=== PATIENT | female | born 1995 | race Caucasian/White ===

== ENCOUNTER 2020-07-03 08:44 | Emergency (ER) | payer OTHER, SELFPAY ==
--- NOTE | ~2020-07-03 | XR_ITS ---
EXAMINATION: XR toe 5th RT min 2V DATE: 07/03/2020 09:07 INDICATION: Right fifth toe pain. TECHNIQUE: 3 views of right fifth toe were obtained. COMPARISON: None. FINDINGS: There is a bunionette deformity of the fifth digit. No fracture. Joint spaces are normal. IMPRESSION: 1. Bunionette. Reviewed, dictated and finalized at location A. IMPRESSION: 1. Bunionette.
[2020-07-03 08:48] VITALS: BP 121/53; PULSE 86; RESP 20; TEMP 36.8; O2SAT 99
--- NOTE | 2020-07-03 09:07 | PC.NURSE ---
PT DECLINED WHEELCHAIR TO RADIOLOGY
--- NOTE | 2020-07-03 09:09 | ED.LOWEXIN ---
HPI - Extremity Injury (Lower) General Chief Complaint: Extremity Injury, Lower Stated Complaint: right pinky toe injury Time Seen by Provider: 07/03/20 09:00 Source: patient Limitations: no limitations History of Present Illness HPI Narrative: Stacey Alvarez is a 25 yo female with no PMH who comes to express care after hitting with of right foot none Vannessa Valdez last night states it hurt immediately and felt a pop. Pain is a 10. Mild swelling, no ecchymosis. has not iced toe Related Data Home Medications Medication Instructions Recorded Confirmed levonorgestrel [Mirena] 1 device INTRAUTERINE ONCE 07/03/20 07/03/20 Allergies Allergy/AdvReac Type Severity Reaction Status Date / Time tramadol Allergy Mild Rash Verified 07/03/20 09:06 Review of Systems Review of Systems: Narrative: CONSTITUTIONAL: Denies fever, chills, sweats. EYES: Denies visual changes, redness, discharge. ENT: Denies rhinorrhea, congestion, sore throat, otalgia. CARDIOVASCULAR: Denies chest pain, palpitations, edema. RESPIRATORY: Denies dyspnea, wheezing, cough GASTROINTESTINAL: Denies abdominal pain, nausea, vomiting, diarrhea. GENITOURINARY: Denies dysuria, hematuria, abnormal discharge SKIN: Denies rash or itching. NEUROLOGIC: Denies numbness, or focal weakness. PSYCHIATRIC: Denies anxiety or depression. Right toe pain- hit foot on barbell last night PMFSH Past Medical History Medical History No acute medical problems Family History Family History Father Diabetes mellitus Social History Social History (Updated 07/03/20 @ 09:11 by Marisela Ventura CNP) Smoking status: Never smoker Alcohol intake: current Comments At time of signature, I agree with nursing past medical, surgical, social and family history. There is no relevant family history pertinent to the presenting complaint. Exam Narrative: Exam Narrative: GENERAL: This is a well-nourished, well-developed patient, in mild distress. HEAD: normocephalic, atraumatic. EYES: Sclera clear/white. Vision is grossly intact. EARS: External ears normal, Hearing grossly intact. NOSE: External nose normal without nasal discharge, nares without redness, no rhinorrhea. THROAT: Mucous membranes moist, NECK: Neck supple, CARDIOVASCULAR: Regular rate and rhythm without murmurs, gallops, or rubs. RESPIRATORY: Clear to auscultation. Breath sounds equal bilaterally. No wheezes, rales, or rhonchi. GASTROINTESTINAL: Abdomen soft, non-tender, SKIN: warm, intact with no suspicious lesions or rash, good texture and turgor. NEURO: awake, alert, and oriented to person, place and time. There were no obvious focal neurologic abnormalities. Steady gait EXTREMITIES: Normal range of motion. Right toe appears slightly rotated but no ecchymosis tender to touch,2+ pedal pulses BACK: Nontender without deformity Course Course Emergency Course: Patient here for injury to right fourth toe x-ray of right foot-results show a bunionette deformity at the fifth digit with no fracture Toe was matthieu taped so patient was able to walk more easily; given instructions on care; ibuprofen for pain Vital Signs Vital signs: Vital Signs Temperature 98.3 F 07/03/20 08:48 Pulse Rate 86 07/03/20 08:48 Respiratory Rate 20 07/03/20 08:48 Blood Pressure 121/53 L 07/03/20 08:48 Pulse Oximetry 99 07/03/20 08:48 Temperature 98.3 F 07/03/20 08:48 Pulse Rate 86 07/03/20 08:48 Respiratory Rate 20 07/03/20 08:48 Blood Pressure 121/53 L 07/03/20 08:48 Pulse Oximetry 99 07/03/20 08:48 MDM - Extremity Injury (Lower) Differential Diagnosis Differential diagnosis: Likely puncture wound of foot, fracture of toe and other Discharge Plan Discharge Clinical Impression: Bunionette of right foot Sprain of toe, fifth, right Qualifiers: Encounter type: initial encounter Qualified
== END 2020-07-03 09:20 | disposition home or self-care (01) ==
PROVIDERS: Emergency Provider Nurse Practitioner
DX: S93.504A Unspecified sprain of right lesser toe(s), initial encounter (principal); W22.8XXA Striking against or struck by other objects, initial encounter; M21.621 Bunionette of right foot
CPT/HCPCS: 73660; 99213; G0463

== ENCOUNTER 2021-04-30 17:29 | Emergency (ER) | payer OTHER, SELFPAY ==
[2021-04-30 17:40] VITALS: BP 131/68; PULSE 75; RESP 16; TEMP 37.6; O2SAT 100
--- NOTE | 2021-04-30 17:43 | ED.SKABFB ---
HPI - Skin/Abscess/Foreign Bdy General Chief complaint: Skin/Abscess/Foreign Body Stated complaint: rash all over Time Seen by Provider: 04/30/21 17:47 Source: patient History of Present Illness HPI narrative: Patient presents with an itchy rash to her arms back left cheek and both lower extremities. Patient states she was outside working in the [employer] and thinks she got into contact with poison oak or poison josh. Patient took 1 Benadryl with minimal relief in itching. No shortness of breath and no chest pain. Patient states she is normally healthy individual. MD complaint: rash Related Data Home Medications Medication Instructions Recorded Confirmed levonorgestrel [Mirena] 1 device INTRAUTERINE ONCE 07/03/20 07/03/20 Allergies Allergy/AdvReac Type Severity Reaction Status Date / Time tramadol Allergy Mild Rash Verified 07/03/20 09:06 Review of Systems Review of Systems: CONSTITUTIONAL: Denies fever, chills, or sweats. EYES: Denies visual changes, redness, or discharge. ENT: Denies rhinorrhea, congestion, sore throat, or otalgia. CARDIOVASCULAR: Denies chest pain, palpitations, or edema. RESPIRATORY: Denies cough or dyspnea. GASTROINTESTINAL: Denies abdominal pain, nausea, vomiting, or diarrhea. GENITOURINARY: Denies dysuria or hematuria. SKIN: Itchy rash to both arms and legs MUSCULOSKELETAL: Denies back pain, joint pain, or myalgia. NEUROLOGIC: Denies headache, numbness, or weakness. PSYCHIATRIC: Denies anxiety or depression. PMFSH Past Medical History Medical History No acute medical problems Family History Family History Father Diabetes mellitus Social History Social History (Updated 07/03/20 @ 09:11 by Marisela Ventura CNP) Smoking status: Never smoker Alcohol intake: current Gender identity (if verbalized by the patient): Female Comments At time of signature, agree with nursing past medical, surgical, social and family history. There is no relevant family history pertinent to the presenting complaint Exam Narrative: GENERAL: Well-appearing, well-nourished, and in no acute distress. HEAD: Normocephalic, atraumatic. EYES: PERRLA and EOMI. ENT: Nares clear, no rhinorrhea or epistaxis. Mucous membranes moist. NECK: Supple. CHEST: Clear to auscultation. No respiratory distress. HEART: Regular rate and rhythm. No murmur heard. Normal peripheral pulses. ABDOMEN: Soft, nontender, nondistended, normal active bowel sounds. EXTREMITIES: Normal range of motion. No edema. SKIN: Warm, dry, NON SPECIFIC GENERALIZED RASH. NO FLUID FILLED LESIONS, NO VESICLES, NO HIVES OR URTICARIA, NO BURROWS OR RASH IN WEB SPACES TO INDICATE SCABIES, NO CONCERN FOR CELLULITIS OR ABSCESS FORMATION. NO PURPURA OR PETECHIA. DOES NOT INVOLVE THE SOLES OF FEET OR PALMS OF HANDS OR THE MUCOSAL MEMBRANES. NO SLOUGHING OR SWELLING OF TONGUE OR LIPS. To both arms both lower extremities NEURO: No focal deficits. Alert and oriented x3. Misti Coma Scale Eye Opening: Spontaneous 4 Misti Coma Scale Motor: Obeys Commands 6 [place] Coma Scale Verbal: Oriented 5 Misti Coma Scale Total 15 Course Vital Signs Vital signs: Vital Signs Temperature 37.6 C 04/30/21 17:40 Pulse Rate 75 04/30/21 17:40 Respiratory Rate 16 04/30/21 17:40 Blood Pressure 131/68 04/30/21 17:40 Pulse Oximetry 100 04/30/21 17:40 Temperature 37.6 C 04/30/21 17:40 Pulse Rate 75 04/30/21 17:40 Respiratory Rate 16 04/30/21 17:40 Blood Pressure 131/68 04/30/21 17:40 Pulse Oximetry 100 04/30/21 17:40 Addressed elevated BP today. Today's blood pressure higher than recommended range. Discussed importance of follow -up with PCP and possible terminal superintendent effects/cardiovascular events related to HTN. Currently patient denies headache, dizziness, vision changes, CP or shortness of breath. Critical dx considered and discussed
== END 2021-04-30 17:52 | disposition home or self-care (01) ==
PROVIDERS: Emergency Provider Nurse Practitioner Family
DX: L23.7 Allergic contact dermatitis due to plants, except food (principal)
CPT/HCPCS: 99213; G0463

== ENCOUNTER 2021-10-11 19:30 | Emergency (ER) | payer OTHER, SELFPAY ==
--- NOTE | ~2021-10-11 | XR_ITS ---
XR hand RT min 3V DATE: 10/11/2021 19:50 INDICATION: Accidentally hit wall on 10/09/21. Pain at third and fourth digits TECHNIQUE: 3 views COMPARISON: None FINDINGS: No fracture or dislocation, periosteal reaction or bone destruction, joint space narrowing, erosive change, chondrocalcinosis. IMPRESSION: Negative Reviewed, dictated and finalized at location A. [facility] [employer] [facility] [employer] IMPRESSION: Negative
[2021-10-11 19:36] VITALS: BP 118/78; PULSE 94; RESP 20; TEMP 37.1; O2SAT 100
--- NOTE | 2021-10-11 19:44 | ED.UPPEXIN ---
HPI - Extremity Injury (Upper) General Chief Complaint: Extremity Injury, Upper Stated Complaint: Right Hand Injury Time Seen by Provider: 10/11/21 19:46 Source: patient and RN notes reviewed Mode of arrival: ambulatory Limitations: no limitations History of Present Illness HPI narrative: 26-year-old female presents with concern for right hand pain. Reports she woke up on Monday morning after sleeping on a friend's bed and thinks she may have hit her hand on a concrete wall. She reports pain increased throughout the day of Monday and today. She denies intervention. She reports pain shoots up her arm when she flexes her fingers. She reports mild tenderness and swelling. MD complaint: injury to: right and hand Related Data Home Medications Medication Instructions Recorded Confirmed ethynodiol diac-eth estradiol tablet PO DAILY 10/11/21 topiramate 25 mg PO DAILY 10/11/21 10/11/21 Allergies Allergy/AdvReac Type Severity Reaction Status Date / Time tramadol Allergy Mild Rash Verified 10/11/21 19:45 Review of Systems Review of Systems: CONSTITUTIONAL: Denies malaise, chills, sweats, or fever. CARDIOVASCULAR: Denies chest pain, palpitations, or edema. RESPIRATORY: Denies cough or dyspnea. SKIN: Denies rash or itching, bruising, redness, swelling. MUSCULOSKELETAL: Reports right hand pain NEUROLOGIC: Denies numbness, weakness All systems reviewed & are unremarkable except as noted in HPI and below PMFSH Past Medical History Medical History No acute medical problems Family History Family History Father Diabetes mellitus Social History Social History (Updated 07/03/20 @ 09:11 by Marisela Ventura CNP) Smoking status: Never smoker Alcohol intake: current Gender identity (if verbalized by the patient): Female Comments At time of signature, agree with nursing past medical, surgical, social and family history. There is no relevant family history pertinent to the presenting complaint Exam Narrative: GENERAL: Well-appearing, well-nourished, and in no acute distress. HEAD: Normocephalic EYES: PERRLA, conjunctivae clear NECK: Supple. CHEST: Speaks in full sentences. No respiratory distress. HEART: Regular rate and rhythm. Normal and equal peripheral pulses. EXTREMITIES: Right hand and digits of hand have normal strength and sensation. 5/5 strength with digit flexion, extension. Range of motion normal. No clubbing, cyanosis, or edema noted. Mild tenderness at the base of digits 2 and 3. Skin intact. Normal digital cascade with flexion of fingers, median, ulnar and radial nerve intact. Normal sensation of each side of finger. Can perform 'okay' sign, 'cross over finger test of index and middle fingers' and 'thumbs up' sign. No scissoring. Normal thumb opposition. Good capillary refill and radial pulse. Distal capillary refill less than 3 seconds. Patient is right/left hand dominant SKIN: Warn, dry, intact, pink. No rash. No open skin, erythema. NEURO: Alert and oriented x3. PSYCH: Normal mood and affect Course Course Emergency Course: Patient is aware of diagnosis, understands and agrees to treatment plan. Anticipatory guidance given. Patient agrees to follow-up as directed and is aware of reasons to seek care at the emergency department. Portions of this record may have been created with voice recognition software Level of Care: Express Care Visit Vital Signs Vital signs: Vital Signs Temperature 98.8 F 10/11/21 19:36 Pulse Rate 94 10/11/21 19:36 Respiratory Rate 20 10/11/21 19:36 Blood Pressure 118/78 10/11/21 19:36 Pulse Oximetry 100 10/11/21 19:36 Temperature 98.8 F 10/11/21 19:36 Pulse Rate 94 10/11/21 19:36 Respiratory Rate 20 10/11/21 19:36 Blood Pressure 118/78 10/11/21 19:36 Pulse Oximetry 100 10/11/21 19:36 Reviewed. MDM - Extremity Injury (Upper) M
== END 2021-10-11 20:07 | disposition home or self-care (01) ==
PROVIDERS: Emergency Provider Nurse Practitioner
DX: M77.8 Other enthesopathies, not elsewhere classified (principal)
CPT/HCPCS: 73130; 99213; G0463

== ENCOUNTER 2022-07-20 17:34 | Emergency (ER) | payer OTHER, SELFPAY ==
[2022-07-20 17:46] VITALS: BP 127/90; PULSE 79; RESP 20; TEMP 36.8; O2SAT 100
--- NOTE | 2022-07-20 18:14 | ED.SKABFB ---
HPI - Skin/Abscess/Foreign Bdy General Chief complaint: Skin/Abscess/Foreign Body Stated complaint: Rash Time Seen by Provider: 07/20/22 18:14 Source: patient Mode of arrival: ambulatory Limitations: no limitations History of Present Illness HPI narrative: 27 y/o mone presented for c/o left cheek redness, pain and drainage from site. Woke this morning with pimple, applied warm compress and the 'white head' came off and has been draining from the site all day. Hx MRSA. Denies dental or eye pain. Denies fever or other sites of skin changes. Denies change to lotion, soap, or makeup. Denies lip/tongue or throat swelling, sob, or wheezing. Related Data Home Medications Medication Instructions Recorded Confirmed ethynodiol diacetate-ethinyl 1 tablet PO DAILY 10/11/21 07/20/22 estradiol 1 mg-35 mcg tablet topiramate 25 mg tablet 25 mg PO DAILY 10/11/21 07/20/22 Allergies Allergy/AdvReac Type Severity Reaction Status Date / Time tramadol Allergy Mild Rash Verified 07/20/22 17:53 sumatriptan Allergy Anxiety Verified 07/20/22 17:53 Review of Systems Review of Systems: CONSTITUTIONAL: Denies body aches, fever, chills, or sweats. EYES: Denies visual changes, redness, or discharge. CARDIOVASCULAR: Denies chest pain, palpitations, or edema. RESPIRATORY: Denies cough or dyspnea. SKIN: per HPI MUSCULOSKELETAL: Denies back pain, joint pain, or myalgia. NEUROLOGIC: Denies headache, numbness, tingling, or weakness. [facility] Past Medical History Medical History No acute medical problems Family History Family History Father Diabetes mellitus Social History Social History Smoking status: Never smoker Alcohol intake: current Gender identity (if verbalized by the patient): Female Comments At time of signature, I have reviewed and agree with nursing past medical, surgical, social and family history unless otherwise noted. Please see nursing chart for further information. There is no relevant family history pertinent to the presenting complaint Exam Narrative: GENERAL: Well-appearing HEAD: Normocephalic, atraumatic. EYES: conjunctivae clear, and EOMI. ENT: Mucous membranes moist. Oropharynx without edema, erythema or lesions. CHEST: Clear to auscultation. HEART: Regular rate and rhythm. SKIN: Warm, dry. left upper cheek abscess approx 2cm diameter, tender, no induration or fluctuance, no active drainage NEURO: Alert and oriented x3. Course Course Emergency Course: Patient is aware of diagnosis, understands and agrees to treatment plan. Anticipatory guidance given. Patient agrees to follow-up as directed and is aware of reasons to seek care at the emergency department. Portions of this record may have been created with voice recognition software Level of Care: Express Care Visit Vital Signs Vital signs: Vital Signs Temperature 98.2 F 07/20/22 17:46 Pulse Rate 79 07/20/22 17:46 Respiratory Rate 20 07/20/22 17:46 Blood Pressure 127/90 07/20/22 17:46 Pulse Oximetry 100 07/20/22 17:46 Oxygen Delivery Room Air 07/20/22 17:46 Temperature 98.2 F 07/20/22 17:46 Pulse Rate 79 07/20/22 17:46 Respiratory Rate 20 07/20/22 17:46 Blood Pressure 127/90 07/20/22 17:46 Pulse Oximetry 100 07/20/22 17:46 Oxygen Delivery Room Air 07/20/22 17:46 Reviewed MDM - Skin/Abscess/Foreign Bdy MDM Narrative Medical decision making narrative: No indication for I&D, will give abx given hx MRSA and PE. Advised supportive measures and signs/symptoms to go to the ER. Pt is appropriate for outpt treatment and f/u. Instructed patient to go to nearest ER immediately for any worsening symptoms including but not limited to: fever, spreading rash, pain, redness, swelling, drainage or any symptoms concerning to the pat
== END 2022-07-20 18:26 | disposition home or self-care (01) ==
PROVIDERS: Emergency Provider Nurse Practitioner Family; PCP Internal Medicine
DX: L02.01 Cutaneous abscess of face (principal)
CPT/HCPCS: 99213; G0463

== ENCOUNTER 2022-10-31 17:18 | Emergency (ER) | payer OTHER, SELFPAY ==
--- NOTE | ~2022-10-31 | XR_ITS ---
EXAM: XR foot LT min 3V DATE: 10/31/2022 17:45 HISTORY: WOOD DROPPED ONTOP OF LT. FOOT. 10/30/22. ATTN: GREAT TOE. . COMPARISON: None available. FINDINGS: Normal mineralization. No fracture or dislocation. No lytic or blastic lesion. Joint space s are maintained. Moderate plantar enthesopathy No erosion or periosteal change. Soft tissues within normal limits. IMPRESSION: No acute osseous finding in the left foot. Reviewed, dictated and finalized at location K. [facility]
[2022-10-31 17:24] VITALS: BP 117/83; PULSE 56; RESP 20; TEMP 36.9; O2SAT 100
--- NOTE | 2022-10-31 18:04 | ED.LOWEXIN ---
HPI - Extremity Injury (Lower) General Chief Complaint: Extremity Injury, Lower Stated Complaint: Toe Injury Time Seen by Provider: 10/31/22 18:04 Source: patient, RN notes reviewed and old records reviewed Mode of arrival: ambulatory Limitations: no limitations History of Present Illness HPI Narrative: 27-year-old female with complaints footboard slipping off of bed frame and fell on top of left foot yesterday with pain mainly in left great toe.Patient reports that she went to work today and found it so painful to walk on her foot they sent her home from work. Patient reports that she has some tingly feeling to her left great toe area. patient able to move left great toe and foot no obvious deformity noted. MD complaint: foot injury Onset (ago): day(s) (1) Type of Injury: blunt Place: home Severity scale (1-10): 9 Treatments prior to arrival: cold therapy, NSAIDS and other (ELEVATION) Related Data Home Medications Medication Instructions Recorded Confirmed ethynodiol diacetate-ethinyl 1 tablet PO DAILY 10/11/21 07/20/22 estradiol 1 mg-35 mcg tablet topiramate 25 mg tablet 25 mg PO DAILY 10/11/21 07/20/22 Allergies Allergy/AdvReac Type Severity Reaction Status Date / Time tramadol Allergy Mild Rash Verified 07/20/22 17:53 sumatriptan Allergy Anxiety Verified 07/20/22 17:53 Review of Systems Review of Systems: CONSTITUTIONAL: Denies fever, chills, or sweats. CARDIOVASCULAR: Denies chest pain, palpitations, or edema. RESPIRATORY: Denies cough or dyspnea. SKIN: Denies rash or itching. Denies laceration or abrasions MUSCULOSKELETAL: Reports PAIN TO THE LEFT FOOT PREDOMINANTLY ACROSS LEFT GREAT TOE FROM FOOT BOARD OF BED FALLING ON LEFT FOOT MAINLY TOE NEUROLOGIC: Denies numbness, or weakness. All systems reviewed & are unremarkable except as noted in HPI and below PMFSH Past Medical History Medical History (Updated 11/01/22 @ 00:01 by Bruno Yeung) No acute medical problems Surgical History Surgical History H/O arthroscopy of left knee Previous section Family History Family History Father Diabetes mellitus Social History Social History Smoking status: Never smoker Alcohol intake: current Gender identity (if verbalized by the patient): Female Comments At time of signature, agree with nursing past medical, surgical, social and family history. There is no relevant family history pertinent to the presenting complaint Exam Narrative: GENERAL: Well-appearing, well-nourished, and in no acute distress. HEAD: Normocephalic, atraumatic. EYES: PERRLA and EOMI. ENT: Nares clear, no rhinorrhea or epistaxis. Mucous membranes moist. NECK: Supple. NO LYMPHADENOPATHY CHEST: Clear to auscultation. No respiratory distress.sao2 100% ON ROOM AIR HEART: Regular rate and rhythm. No murmur heard. Normal peripheral pulses. ABDOMEN: Soft, nontender, nondistended, normal active bowel sounds. EXTREMITIES: Normal range of motion. No edema.PAIN TO LEFT GREAT TOE AND DISTAL FOREFOOT no acute edema or noted deformity SKIN: Warm, dry, no rash. NEURO: No focal deficits. Alert and oriented x3. Course Course Emergency Course: Patient is aware of diagnosis, understands and agrees to treatment plan. Anticipatory guidance given. Patient agrees to follow-up as directed and is aware of reasons to seek care at the emergency department. Portions of this record may have been created with voice recognition software Level of Care: Express Care Visit Vital Signs Vital signs: Vital Signs Temperature 36.9 C 10/31/22 17:24 Pulse Rate 56 L 10/31/22 17:24 Respiratory Rate 20 10/31/22 17:24 Blood Pressure 117/83 10/31/22 17:24 Pulse Oximetry 100 10/31/22 17:24 Oxygen Delivery Room Air 10/31/22 17:24 Temperature 36.9 C 10/31/22 1
== END 2022-10-31 18:28 | disposition home or self-care (01) ==
PROVIDERS: Emergency Provider Registered Nurse; PCP Internal Medicine
DX: S90.112A Contusion of left great toe without damage to nail, initial encounter (principal); W20.8XXA Other cause of strike by thrown, projected or falling object, initial encounter
CPT/HCPCS: 73630; 99213; G0463

== ENCOUNTER 2023-08-03 09:16 | Emergency (ER) | payer OTHER, SELFPAY ==
--- NOTE | 2023-08-03 09:24 | ED.GENADULT ---
HPI - General Adult General Chief complaint: Upper Respiratory Infection Stated complaint: Headache/Nausea Source: patient and RN notes reviewed History of Present Illness HPI narrative: 28 yo F presents to urgent care with complaints of nausea and TORRES that started at 4 am this morning. Pt is also reporting some congestion starting. Denies any fevers, chills, abdominal pain, vomiting, chest pain, SOB, sore throat, or ear pain. Pt states her boss had covid last week. Pt did take some ibuprofen on an empty stomach this morning with minimal relief and states she has drank some 7 up this morning. Related Data Home Medications Medication Instructions Recorded Confirmed ethynodiol diacetate-ethinyl 1 tablet PO DAILY 10/11/21 08/03/23 estradiol 1 mg-35 mcg tablet topiramate 25 mg tablet 25 mg PO DAILY 10/11/21 08/03/23 Allergies Allergy/AdvReac Type Severity Reaction Status Date / Time tramadol Allergy Mild Rash Verified 08/03/23 09:33 sumatriptan Allergy Anxiety Verified 08/03/23 09:33 Review of Systems Review of Systems: Pertinent positives and pertinent negatives per HPI. [facility] Past Medical History Medical History (Updated 08/03/23 @ 09:38 by Tania Chavez, AG[place]) No acute medical problems Surgical History Surgical History H/O arthroscopy of left knee Previous section Family History Family History Father Diabetes mellitus Social History Social History Smoking status: Never smoker Alcohol intake: current Gender identity (if verbalized by the patient): Female Comments At the time of my signature, I reviewed and agree with the nursing past medical, surgical, social, and family history. There is no relevant family history pertinent to the patient complaint. Exam Narrative: GENERAL: This is a well-nourished, well-developed patient, in no apparent distress. HEAD: normocephalic, atraumatic. EYES: Sclera clear/white. Vision is grossly intact. EARS: External ears normal, auditory canals clear and without drainage, TMs normal without perforation. Hearing grossly intact. NOSE: External nose normal with no obvious nasal discharge, nares without redness, no rhinorrhea. THROAT: Mucous membranes moist, posterior pharynx clear. NECK: Neck supple, non-tender without lymphadenopathy, masses or thyromegaly. CARDIOVASCULAR: Regular rate and rhythm without murmurs, gallops, or rubs. RESPIRATORY: Clear to auscultation. Breath sounds equal bilaterally. No wheezes, rales, or rhonchi. GASTROINTESTINAL: Abdomen soft, non-tender, nondistended. Bowel sounds are active. No hepato-splenomegaly, or palpable masses. No guarding. SKIN: warm, intact with no suspicious lesions or rash, good texture and turgor. NEURO: awake, alert, and oriented to person, place and time. There were no obvious focal neurologic abnormalities. EXTREMITIES: No clubbing, cyanosis, or edema. No joint tenderness, effusion, or edema noted. BACK: Nontender without deformity or crepitus. No flank tenderness. Course Course Level of Care: Express Care Visit Vital Signs Vital signs: Vital Signs Temperature 97.8 F 08/03/23 09:27 Pulse Rate 67 08/03/23 09:27 Respiratory Rate 16 08/03/23 09:27 Blood Pressure 117/70 08/03/23 09:27 Pulse Oximetry 98 08/03/23 09:27 Oxygen Delivery Room Air 08/03/23 09:27 Temperature 97.8 F 08/03/23 09:27 Pulse Rate 67 08/03/23 09:27 Respiratory Rate 16 08/03/23 09:27 Blood Pressure 117/70 08/03/23 09:27 Pulse Oximetry 98 08/03/23 09:27 Oxygen Delivery Room Air 08/03/23 09:27 Reviewed Medical Decision Making MDM Narrative Medical decision making narrative: Viral illness may last between 7-21 days; antibiotics do not cure viral illness and are NOT recommended at this time. Also, recommend symptom
[2023-08-03 09:27] VITALS: BP 117/70; PULSE 67; RESP 16; TEMP 36.6; O2SAT 98
== END 2023-08-03 09:40 | disposition home or self-care (01) ==
PROVIDERS: Emergency Provider Nurse Practitioner Family; PCP Internal Medicine
DX: B34.9 Viral infection, unspecified (principal)
CPT/HCPCS: 99213; G0463

== ENCOUNTER 2023-10-30 12:41 | Emergency (ER) | payer OTHER, SELFPAY ==
[2023-10-30 13:10] VITALS: BP 126/74; PULSE 64; RESP 18; TEMP 36.7; O2SAT 100
--- NOTE | 2023-10-30 14:09 | ED.EAR ---
HPI - Ear Problem General Chief complaint: Ear Stated complaint: Ear Pain Time Seen by Provider: 10/30/23 14:09 Source: patient, RN notes reviewed and old records reviewed Mode of arrival: ambulatory Limitations: no limitations History of Present Illness HPI Narrative: 28-year-old female presents to [facility] with complaints of bilateral ear pain since last night and has felt feverish with no known recorded temperature. Patient reports no cough or any shortness of breath, denies sore throat or any body aches. Patient states that she has been taking some Ibuprofen for her discomfort. MD Complaint: ear pain and other (felt feverish) Location: bilateral Severity: moderate Discharge from ear: Reports no Treatment prior to arrival: oral analgesic (Ibuprofen) Related Data Home Medications Medication Instructions Recorded Confirmed ethynodiol diacetate-ethinyl 1 tablet PO DAILY 10/11/21 10/30/23 estradiol 1 mg-35 mcg tablet Allergies Allergy/AdvReac Type Severity Reaction Status Date / Time tramadol Allergy Mild Rash Verified 10/30/23 13:39 sumatriptan Allergy Anxiety Verified 10/30/23 13:39 Review of Systems Review of Systems: CONSTITUTIONAL: Denies malaise, chills, sweats, no recorded fever, has felt feverish.. EYES: Denies visual changes, redness, or discharge. ENT: Reports rhinorrhea, congestion,no sinus pain, bilateral otalgia and no sore throat. CARDIOVASCULAR: Denies chest pain, palpitations, or edema. RESPIRATORY: Reports no cough.? Denies dyspnea. GASTROINTESTINAL: Denies abdominal pain, nausea, vomiting, diarrhea SKIN: Denies rash or itching. MUSCULOSKELETAL: Denies myalgia. NEUROLOGIC: Denies headache. All systems reviewed & are unremarkable except as noted in HPI and below PMFSH Past Medical History Medical History (Updated 10/31/23 @ 13:33 by Kristy Correia NP) Hx of migraines No acute medical problems Surgical History Surgical History H/O arthroscopy of left knee Previous section Family History Family History Father Diabetes mellitus Social History Social History Smoking status: Never smoker Alcohol intake: current Gender identity (if verbalized by the patient): Female Comments At time of signature, agree with nursing past medical, surgical, social and family history. There is no relevant family history pertinent to the presenting complaint Exam Narrative: GENERAL: Well-appearing, well-nourished, and in no acute distress. HEAD: Normocephalic EYES: PERRLA, conjunctivae clear ENT: Nares clear, turbinates edematous and erythematous, clear discharge. Mucous membranes moist, Left TM red and bulging, Right TM.pearly hoskins with dull light reflex; no tragal tenderness. Oropharynx erythematous without lesions. Tonsils enlarged and without exudate, no drooling, no hoarseness, no trismus, uvula midline.post nasal drainage NECK: Supple. No lymphadenopathy CHEST: Clear to auscultation, breath sounds equal. No wheezing, rhonchi, rales, or stridor. No respiratory distress, speaks in full sentences.no cough noted SAO2 100% on room air HEART: Regular rate and rhythm. No murmur heard. SKIN: Warm, dry, no rash. NEURO: Alert and oriented x3. PSYCH: Normal mood and affect Course Course Emergency Course: Patient is aware of diagnosis, understands and agrees to treatment plan.? Anticipatory guidance given.? Patient agrees to follow-up as directed and is aware of reasons to seek care at the emergency department. Portions of this record may have been created with voice recognition software Level of Care: Express Care Visit Vital Signs Vital signs: Vital Signs Temperature 36.7 C 10/30/23 13:10 Pulse Rate 64 10/30/23 13:10 Respiratory Rate 18 10/30/23 13:10 Blood
== END 2023-10-30 14:35 | disposition home or self-care (01) ==
PROVIDERS: Emergency Provider Registered Nurse; PCP Internal Medicine
DX: H65.02 Acute serous otitis media, left ear (principal)
CPT/HCPCS: 87081; 87880; 99213; G0463

== ENCOUNTER 2023-12-28 13:57 | Emergency (ER) | payer BC, SELFPAY ==
[2023-12-28 14:04] VITALS: BP 129/60; PULSE 71; RESP 20; TEMP 36.9; O2SAT 99
--- NOTE | 2023-12-28 14:28 | ED.GENADULT ---
HPI - General Adult General Chief complaint: Ear Stated complaint: left ear pain Source: patient, RN notes reviewed and old records reviewed Mode of arrival: ambulatory Limitations: no limitations History of Present Illness HPI narrative: 28-year-old female presents to [facility] with complaint of left ear pain that started today. Patient denies any other symptoms. Related Data Home Medications Medication Instructions Recorded Confirmed topiramate 25 mg tablet 25 mg PO HS 12/28/23 12/28/23 Allergies Allergy/AdvReac Type Severity Reaction Status Date / Time tramadol Allergy Mild Rash Verified 10/30/23 13:39 sumatriptan Allergy Anxiety Verified 10/30/23 13:39 Review of Systems Constitutional: Constitutional: Reports no additional constitutional complaints, Denies body ache(s), Denies chills, Denies fatigue, Denies fever(s) and Denies headache(s) Eyes: Eyes: Reports no additional eye complaints and Denies blurry vision ENT: Reports system reviewed and no additional complaints, except as documented, Denies vertigo, Denies dizziness, Denies ear discharge, Reports otalgia, Denies facial pain, Denies headache(s), Denies nasal congestion, Denies nasal discharge, Denies sinus pain, Denies sinus pressure and Denies sore throat Cardiovascular: Cardiovascular: Reports no additional cardiovascular complaints, Denies chest pain, Denies chest pain at rest, Denies rapid heart rate and Denies dyspnea Respiratory: Respiratory: Reports no additional respiratory complaints, Denies chest congestion, Denies cough, Denies pain on inspiration, Denies pain with cough and Denies dyspnea Gastrointestinal: Gastrointestinal: Denies abdominal pain, Denies diarrhea, Denies nausea and Denies vomiting Integumentary/Breasts: Skin/Breast: Denies rash Neurologic: Reports system reviewed and no additional complaints, except as documented, Denies vertigo, Denies dizziness and Denies headache(s) Endocrine: Endocrine: Denies fatigue PMF Past Medical History Medical History Hx of migraines No acute medical problems Surgical History Surgical History H/O arthroscopy of left knee Previous section Family History Family History Father Diabetes mellitus Social History Social History Smoking status: Never smoker Alcohol intake: current Gender identity (if verbalized by the patient): Female Comments At the time of my signature, I reviewed and agree with the nursing past medical, surgical, social, and family history. There is no relevant family history pertinent to the patient complaint. Exam Const: General: cooperative, healthy appearing, no acute distress and well nourished Nutritional Appearance: well nourished Orientation/consciousness: patient oriented x3 Limitations: no limitations HENMT: Head: normal to inspection and normocephalic Ears: external ears normal, TM's normal bilaterally, mastoids normal and Abnormal EAC present erythema on the left, edema on the left and EAC tenderness on the left Face/Nose/Sinus: normal facial exam Face and sinus: normal facial exam Mouth: Yes Normal oral and palatal mucosa present, Yes oropharynx normal and Yes moist mucous membranes Throat: tonsils normal, uvula midline and no uvular edema Eyes: General: appearance normal, both eyes and all related structures Sclera: sclerae normal Pupils: Equal, round and reactive pupils present Resp: Effort & Inspection: normal respiratory effort, able to speak in complete sentences, no audible wheezes, no cough, no respiratory distress and no retractions Auscultation: clear to auscultation bilaterally, no crackles, no rales, no rhonchi and no wheezes Cardio: Rate: regular rate Rhythm: regular rhythm Skin: General skin exa
== END 2023-12-28 14:39 | disposition home or self-care (01) ==
PROVIDERS: Emergency Provider Registered Nurse; PCP Internal Medicine
DX: H60.312 Diffuse otitis externa, left ear (principal)
CPT/HCPCS: 99213; G0463

== ENCOUNTER 2024-01-18 09:25 | Emergency (ER) | payer BC, SELFPAY ==
[2024-01-18 09:41] VITALS: BP 130/61; PULSE 70; RESP 14; TEMP 36.6; O2SAT 100
--- NOTE | 2024-01-18 10:01 | ED.GENADULT ---
HPI - General Adult General Chief complaint: Eye Problems Stated complaint: Eye Problem Time Seen by Provider: 01/18/24 10:02 Source: patient, RN notes reviewed and old records reviewed Mode of arrival: ambulatory Limitations: no limitations History of Present Illness HPI narrative: 28-year-old female to [facility] for complaint of right eye redness, irritation, purulent drainage that started yesterday. Patient states her eye was crusted shut upon wakening today. Patient denies visual changes, dizziness, headache. Patient in no acute distress. Related Data Home Medications Medication Instructions Recorded Confirmed levonorgestrel 21 mcg/24 hr (up to 1 device intrauterine ONCE 01/18/24 01/18/24 8 years) 52 mg intrauterine device (Mirena) Allergies Allergy/AdvReac Type Severity Reaction Status Date / Time tramadol Allergy Mild Rash Verified 01/18/24 10:00 sumatriptan Allergy Anxiety Verified 01/18/24 10:00 Review of Systems Review of Systems: All systems reviewed & are unremarkable except as noted in HPI and below Constitutional: Constitutional: Reports as per HPI, Denies chills, Denies fatigue and Denies fever(s) Eyes: Eyes: Reports as per HPI, Denies blurry vision, Denies change in vision, Denies diplopia, Reports irritation, Denies loss of vision, Denies other visual disturbances and Denies eye pain ENT: Reports system reviewed and no additional complaints, except as documented Cardiovascular: Cardiovascular: Reports no additional cardiovascular complaints, Denies chest pain and Denies dyspnea Respiratory: Respiratory: Reports no additional respiratory complaints, Denies cough and Denies dyspnea Musculoskeletal: Musculoskeletal: Reports no additional musculoskeletal complaints Neurologic: Reports system reviewed and no additional complaints, except as documented Psychiatric: Psychiatric: Reports no additional psychiatric complaints [facility] Past Medical History Medical History Hx of migraines No acute medical problems Surgical History Surgical History H/O arthroscopy of left knee Previous section Family History Family History Father Diabetes mellitus Social History Social History Smoking status: Never smoker Alcohol intake: current Gender identity (if verbalized by the patient): Female Comments At the time of my signature, I reviewed and agree with the nursing past medical, surgical, social, and family history. There is no relevant family history pertinent to the patient complaint. Exam Const: General: cooperative, healthy appearing, no acute distress, alert, uncomfortable and well nourished Nutritional Appearance: well nourished Orientation/consciousness: patient oriented x3 Limitations: no limitations HENMT: Head: normal to inspection Ears: external ears normal Face/Nose/Sinus: Normal external nose present, Normal nares present, normal facial exam, No erythema and No edema Face and sinus: normal facial exam, no erythema and no edema Mouth: Yes Normal oral and palatal mucosa present Eyes: Visual Kiser: normal visual kiser by confrontation Alignment and Position: alignment normal and position normal Periorbital: periorbital findings normal Eyelids: eyelids normal Conjunctivae: conjunctival abnormality bilateral conjunctival injection ( Bilateral; worse on right) and discharge purulent Sclera: scleral abnormality bilateral scleral injection ( bilateral; worse on right) Cornea: corneas normal Pupils: Equal, round and reactive pupils present Neck: Neck: normal visual inspection, full ROM and no meningeal signs Lymphatic: no lymphadenopathy noted and no lymphedema noted Chest: Chest palpation & inspection: normal inspection
== END 2024-01-18 10:14 | disposition home or self-care (01) ==
PROVIDERS: Emergency Provider Nurse Practitioner Family; PCP Internal Medicine
DX: H10.9 Unspecified conjunctivitis (principal)
CPT/HCPCS: 99213; G0463

== ENCOUNTER 2025-07-09 08:26 | Outpatient (CLI) | payer OTHER, SELFPAY ==
--- NOTE | ~2025-07-09 | CT_ITS ---
EXAMINATION: CT soft tissue neck w con DATE: 07/09/2025 08:53 INDICATION: Unspecified temporomandibular joint disorder. TECHNIQUE: Computed tomography (CT) of the neck was performed with 75 mL Omnipaque-350 intravenous contrast. Automated exposure control and iterative reconstruction technique were employed. The dose-length product was 488.74 mGy-cm. COMPARISON: None FINDINGS: There are no pathologically enlarged lymph nodes. The cervical carotid arteries are normal. There is a 9 mm subcutaneous cyst in the right posterior upper back, likely a sebaceous cyst. There is mild mucosal thickening in the ethmoid sinuses. The mastoid air cells are normal. There are tiny osteophytes of the left temporomandibular joint. There is mild cervical spondylosis. IMPRESSION: 1. Mild left temporomandibular joint osteoarthritis. Reviewed, dictated and finalized at location E.
== END 2025-07-09 08:27 | disposition home or self-care (01) ==
PROVIDERS: PCP Internal Medicine; Visit Provider Otolaryngology
DX: M26.642 Arthritis of left temporomandibular joint (principal); H92.02 Otalgia, left ear; R07.0 Pain in throat
CPT/HCPCS: 70491; Q9967

== ENCOUNTER 2025-08-26 08:06 | Outpatient (CLI) | payer OTHER, SELFPAY | END 2025-08-26 08:07 | disposition home or self-care (01) | LOC: ANHBWCAUD 08:07 | PROVIDERS: PCP Internal Medicine; Visit Provider Otolaryngology | DX: M26.602 Left temporomandibular joint disorder, unspecified (principal); H93.A2 Pulsatile tinnitus, left ear; H91.20 Sudden idiopathic hearing loss, unspecified ear | CPT/HCPCS: 92557; 92567 ==